=== PATIENT | female | born 1965 | race Caucasian/White ===

== ENCOUNTER → 2017-09-01 | Outpatient (CLI) | payer OTHER ==
[~2017-09-01] MED LIST: SYNTHROID112 MCG PO
== END | disposition home or self-care (01) ==
LOC: OPR 08-26 08:00 → EDSTATUS 08:00
PROC: 0BBC3ZX Excision of Right Upper Lung Lobe, Percutaneous Approach, Diagnostic (ICD-10-PCS; principal; 2017-09-01)
DX: C34.11 Malignant neoplasm of upper lobe, right bronchus or lung (principal); Z85.850 Personal history of malignant neoplasm of thyroid; E89.0 Postprocedural hypothyroidism; K21.9 Gastro-esophageal reflux disease without esophagitis; Z80.3 Family history of malignant neoplasm of breast; Z82.5 Family history of asthma and other chronic lower respiratory diseases; Z90.710 Acquired absence of both cervix and uterus
CPT/HCPCS: 71045; 77012; 87070; 87075; 87205; 88305; 88341 TC; 88342 TC; J2405; J3010

== ENCOUNTER → 2017-09-20 | Outpatient (CLI) | payer OTHER | END | disposition home or self-care (01) | LOC: CDC 12:15 | DX: Z01.810 Encounter for preprocedural cardiovascular examination (principal); C34.90 Malignant neoplasm of unspecified part of unspecified bronchus or lung | CPT/HCPCS: 93000 ==

== ENCOUNTER 2017-10-13 11:03 | Day surgery (SDC) | payer OTHER ==
[2017-10-13] VITALS (10 sets, daily range): BP systolic 95–122; BP diastolic 61–76
[~2017-10-13] VITALS: Ht 162.6 cm; Wt 74.8 kg
[~2017-10-13 11:03] MED LIST changes: +LEVO-T100 MCG PO
[2017-10-13 11:52] LABS: INTER. NORMALIZED RATIO 1.1
[2017-10-13 11:55] LABS: PTT 29.8 SEC (25-37)
[2017-10-13] MEDS ORDERED: HYDROCODON-ACE1 EAC7 PO (15:23)
== END 2017-10-13 19:30 | disposition home or self-care (01) ==
LOC: SDC
PROVIDERS: Thoracic Surgery (Cardiothoracic Vascular Surgery)
PROC: 07B74ZX Excision of Thorax Lymphatic, Percutaneous Endoscopic Approach, Diagnostic (ICD-10-PCS; principal; 2017-10-13)
DX: C34.11 Malignant neoplasm of upper lobe, right bronchus or lung (principal); Z85.850 Personal history of malignant neoplasm of thyroid; Z91.040 Latex allergy status; E89.0 Postprocedural hypothyroidism
CPT/HCPCS: 85610; 85730; 86850; 86900; 86901; 88305; J0330; J0690; J1885; J2250; J2405; J3010